=== PATIENT | female | born 1980 | race Caucasian/White ===

== ENCOUNTER → 2018-09-06 | Emergency (ER) | payer MEDICAID ==
[~2018-09-06] VITALS: Wt 89.3 kg
[~2018-09-06] MED LIST: BACL10TA PO; BACLOFEN 10 MG TAB PO ONE; HYDR-4011 PO; HYDROCODONE/APAP (5/325) TAB PO ONE; IBUP-1561 PO; KETOROLAC 30 MG INJ IM STA; LABE100T7 PO; LORAZEPAM 0.5 MG TAB PO ONE; PREN1TAB49 PO
[2018-09-06 14:42] VITALS: BP 150/95; PULSE 85; RESP 18
--- NOTE | 2018-09-06 18:58 | ERD ---
ER Documentation Chief Complaint Chief Complaint AWOKE WITH HEADACHE AND L SIDE NECK PAIN, LOW GRADE FEVER. NO NEURO DEF HPI 38-year-old female, with history of diabetes, presents the emergency department, complaining of sudden onset of left-sided neck pain that has progressed during the day, causing decreased range of motion and tenderness over the area, the pain is 8/10. No reports of fever, chills, no rashes, no upper respiratory symptoms. The patient denies distal weakness, numbness or tingling. ROS All systems reviewed and are negative except as per history of present illness. Medications Home Meds Reported Medications Labetalol Hcl* (Labetalol Hcl*) 100 Mg Tablet, 100 MG PO BID 06/04/13 Vits W-Ca,Fe,Fa(<1MG) () 1 Tab Tablet, 1 TAB PO DAILY, #1 02/16/11 Allergies Allergies: Coded Allergies: No Known Drug Allergies (Verified Allergy, Unknown, 06/04/13) PMhx/Soc Medical and Surgical Hx: pt denies Medical Hx, pt denies Surgical Hx Hx Alcohol Use: No Hx Substance Use: No Hx Tobacco Use: No Smoking Status: Never smoker FmHx Family History: No diabetes, No coronary disease Physical Exam Vitals Vital Signs Date Temp Pulse Resp B/P (MAP) Pulse Ox O2 O2 Flow FiO2 Time Delivery Rate 09/06/18 100.2 85 18 150/95 99 14:42 (113) Physical Exam Patient alert, oriented, vital signs stable. HEAD: Normocephalic, atraumatic. EYES: PERRLA, EOMI, Sclera and conjunctiva appear normal. NOSE: Clear and patent nostrils. EARS: Canals clear, tympanic membranes WNL. MOUTH: normal lips and tongue, no oral lesions. THROAT: Normal oropharynx, no tonsillar exudates. NECK: Significant muscle spasm on the left side with decreased range of motion due to pain, No lymphadenopathy. HEART: RRR, no rubs, murmurs, clicks or gallops. LUNGS: Clear to auscultation. ABDOMEN: Soft, non-tender without masses or hepatosplenomegaly. EXTREMITIES: No edema bilaterally. BACK: Full ROM, no deformity, normal back exam NEURO: Cranial nerves grossly intact, no motor or sensory deficit SKIN: No rashes, no petechia. Results 24 hrs Current Medications Medications Dose Sig/Sunil Start Time Status Last (Trade) Ordered Route PRN Stop Time Admin Dose Reason Admin Baclofen 20 mg ONCE ONCE 09/06/18 DC (Lioresal) PO 19:00 09/06/18 19:01 Ketorolac 30 mg ONCE STAT 09/06/18 DC Tromethamine IM 18:55 (Toradol) 09/06/18 19:01 1 tab ONCE ONCE 09/06/18 DC Acetaminophen PO 19:00 / 09/06/18 19:01 Hydrocodone Bitart (Ola (5/325)) Lorazepam 0.5 mg ONCE ONCE 09/06/18 DC (Ativan) PO 19:00 09/06/18 19:01 Procedures/MDM No red flags. Differential diagnosis include but not limited to: Cervical sprain/strain, cervical radiculopathy, herniated disk, muscle spasm. Neurovascular exam grossly intact. no clinical findings suggestive of acute infectious process, no acute deformity, no edema, no rashes. Physical examination and clinical presentation consistent most likely with acute neck muscle spasm. During the ED course the patient received treatment with Toradol IM, baclofen, lorazepam and Ola presenting overall improvement of the symptoms. Treatment options and clinical impression discussed with the patient who agrees with management. The patient is stable to be treated outpatient and will be discharged home with recommendations and close monitoring The patient was instructed to follow up with the primary care provider in the next 48h. If symptoms persist, worsen or new symptoms develop, then patient should return to the ED immediately. Instructions explained and given to patient with acknowledgment and demonstrated understanding. Disclaimer: Inadvertent spelling and grammatical errors are likely due to EHR/dictation software use and do not reflect on the overall quality of patient care. Also, please note that the electronic time recorded on this note does not necessarily reflect the actual time of the patient encounter. Departure Diagnosis: Primary Impression: Neck muscle spasm Condition: Stable Additional Instructions: Muchas paris por [facility] para benoit servicio. Esperamos que en benoit visita a la shar de emergencia benoit problema medico haya sido solucionado y que se sienta mucho mejor. Para estar seguros que benoit mejoria sigue en proceso, le pedimos el favor de hacer carlos michael de seguimiento medico con benoit doctor primario en los proximos 2-4 romo. Lleve con usted estos documentos y las medicinas recetadas. Si nikolas sintomas empeoran, NO SE ESPERE, por favor regrese a shar de emergencia INMEDIATAMENTE. En nic que usted no tenga un mdico de atencin primaria: Llame al mdico o clnica comunitaria de referencia que aparece abajo violet las horas de consultorio para hacer carlos michael para que le vean. CLINICAS: [facility] [phone] [facility] [phone] [facility] [id number] [facility] [phone] [facility] [phone] [id number] [facility]. [phone] CAMILLA FRANCISCO MD Sep 06, 2018 18:58
== END | disposition home or self-care (01) ==
LOC: FTE 14:38
DX: M62.838 Other muscle spasm (principal)
CPT/HCPCS: 81025; J1885; Z7610; 96372